=== PATIENT | female | born 1935 | race Caucasian/White ===

== ENCOUNTER 2017-01-10 12:43 | Emergency (ER) | payer MEDICARE, BC | END 2017-01-10 14:43 | disposition home or self-care (01) | LOC: ER1 12:43 | DX: S80.02XA Contusion of left knee, initial encounter (principal); S83.92XA Sprain of unspecified site of left knee, initial encounter; E78.5 Hyperlipidemia, unspecified; M19.90 Unspecified osteoarthritis, unspecified site; Z79.899 Other long term (current) drug therapy; W17.89XA Other fall from one level to another, initial encounter | CPT/HCPCS: 73564; 99283 ==